=== PATIENT | female | born 1950 | race Asian ===

== ENCOUNTER → 2017-05-08 | Outpatient (CLI) | payer MEDICARE, OTHER | END | disposition home or self-care (01) | LOC: RADPV 07:53 | PROVIDERS: ATTEND Legal Medicine | DX: I70.0 Atherosclerosis of aorta (principal) | CPT/HCPCS: 71020 ==

== ENCOUNTER 2017-12-06 08:02 | Day surgery (SDC) | payer MEDICARE, OTHER ==
[~2017-12-06] VITALS: Ht 160 cm; Wt 58.2 kg
[~2017-12-06 08:02] MED LIST: AMOX500C2 PO; ASPI81 PO; DICLOFENAC SODIUM 0.1% 2.5 ML OPHTHALMIC SOLUTION ONE; MOXIFLOXACIN HCL 0.5% 3 ML OPHTHALMIC SOLUTION ONE; PHENYLEPHRINE HCL 2.5% 2 ML OPHTHALMIC SOLUTION ONE; RINGERS SOLUTION,LACTATED 500 ML IV ONE; SIMV-259 PO; TROPICAMIDE 1% 2 ML OPHTHALMIC SOLUTION ONE
[2017-12-06] MEDS ORDERED: LIDOCAINE HCL/PF 1% 2 ML VIAL IM ONE (08:03)
[2017-12-06] MEDS ORDERED: EPINEPHrine 1:1,000 [1 MG/ML] AMP IM ONE (08:03)
[2017-12-06] MEDS ORDERED: HYALURONATE SODIUM 12 MG/ML 0.8 ML SYRINGE IO ONE (08:03)
[2017-12-06] MEDS ORDERED: MIDAZOLAM HCL 2 MG/2 ML VIAL IVP ONE (08:03)
[2017-12-06] MEDS ORDERED: POVIDONE-IODINE 10% 15 ML SOLUTION UD TP ONE (08:03)
[2017-12-06] MEDS ORDERED: BALANCED SALT 15 ML OPHTHALMIC IRRIG.SOLN OD ONE (08:03)
[2017-12-06] MEDS ORDERED: DEXAMETHASONE SOD PHOS 4 MG/ML VIAL IVP ONE (08:03)
[2017-12-06] MEDS ORDERED: FentaNYL CITRATE-PF 100 MCG/2 ML VIAL IVP ONE (08:03)
[2017-12-06] MEDS ORDERED: TETRACAINE HCL VISCOUS 0.5% 5 ML OPHTHALMIC SOLUTION OD ONE (08:03)
[2017-12-06] MEDS: TROPICAMIDE 1% 2 ML OPHTHALMIC SOLUTION OD SCH ×2 (08:26→08:31)
[2017-12-06] MEDS: PHENYLEPHRINE HCL 2.5% 2 ML OPHTHALMIC SOLUTION OD SCH ×2 (08:26→08:31)
[2017-12-06] MEDS ORDERED: MOXIFLOXACIN HCL 0.5% 3 ML OPHTHALMIC SOLUTION OD ONE (11:00)
[2017-12-06] MEDS ORDERED: DICLOFENAC SODIUM 0.1% 2.5 ML OPHTHALMIC SOLUTION OD ONE (11:00)
[2017-12-06] MEDS ORDERED: RINGERS SOLUTION,LACTATED 500 ML IV ONE (11:00)
== END 2017-12-06 10:00 | disposition home or self-care (01) ==
LOC: SDS 08:02
PROVIDERS: ATTEND Specialist
DX: H25.011 Cortical age-related cataract, right eye (principal); E78.00 Pure hypercholesterolemia, unspecified; Z87.891 Personal history of nicotine dependence; Z79.82 Long term (current) use of aspirin; Z79.899 Other long term (current) drug therapy
CPT/HCPCS: 66984; 93005; C1780; J2250; J3010; J7120; J0171; J1100; J3490

== ENCOUNTER 2020-02-09 09:35 | Emergency (ER) | payer MEDICARE, MEDICAID ==
[~2020-02-09] VITALS: Ht 167.6 cm; Wt 54.5 kg
[~2020-02-09 09:35] MED LIST changes: -AMOX500C2 PO; +ASPI-728 PO; -ASPI81 PO; -DICLOFENAC SODIUM 0.1% 2.5 ML OPHTHALMIC SOLUTION ONE; -MOXIFLOXACIN HCL 0.5% 3 ML OPHTHALMIC SOLUTION ONE; -PHENYLEPHRINE HCL 2.5% 2 ML OPHTHALMIC SOLUTION ONE; -RINGERS SOLUTION,LACTATED 500 ML IV ONE; -TROPICAMIDE 1% 2 ML OPHTHALMIC SOLUTION ONE
[2020-02-09 11:33] LABS: BASOPHILS % (AUTO) 0.7 % (0.0-2.0); EOSINOPHILS % (AUTO) 0.1 % (1.0-6.0); HEMATOCRIT 39.3 % (36-46); HEMOGLOBIN 13.4 g/dL (12.0-16.0); LYMPHOCYTES # (AUTO) 0.5 K/uL (1.0-4.8); LYMPHOCYTES % (AUTO) 6.9 % (22.0-44.0); MEAN CORPUSCULAR HEMOGLOBIN 29.3 pg (26.0-34.0); MEAN CORPUSCULAR HGB CONC 34.2 G/dL (31.0-37.0); MEAN CORPUSCULAR VOLUME 86 fL (80-100); MONOCYTES # (AUTO) 0.7 K/uL (0.1-1.0); NEUTROPHILS # (AUTO) 6.1 K/uL (1.8-7.7); NEUTROPHILS % (AUTO) 83.3 % (40.0-70.0); PLATELET COUNT (AUTO) 230 K/uL (150-450); RED BLOOD CELL COUNT(AUTO) 4.59 MIL/uL (4.00-5.20); RED CELL DISTRIBUTION WIDTH 13.7 % (11.5-14.5)
[2020-02-09 11:52] LABS: ANION GAP 12 mmol/L (8-16); CALCIUM, TOTAL 9.1 mg/dL (8.8-10.5); CARBON DIOXIDE 22 mmol/L (22-29); CHLORIDE 103 mmol/L (98-107); CREATININE 0.63 mg/dL (0.60-1.30); GLOMERULAR FILTR. RATE CALC > 60 mL/min (>60); GLUCOSE,RANDOM 113 mg/dL (70-110); POTASSIUM 3.6 mmol/L (3.5-5.1); SODIUM SERUM 137 mmol/L (136-145); UREA NITROGEN, BLOOD 13 mg/dL (7-18)
[2020-02-09 12:18] LABS: ALANINE AMINOTRANSFERASE 27 U/L (12-78); ALBUMIN 2.4 g/dL (3.4-5.0); ALKALINE PHOSPHATASE 51 U/L (46-116); ASPARTATE AMINOTRANSFERASE 41 U/L (15-37); BILIRUBIN,TOTAL 0.8 mg/dL (0.1-1.0); CREATINE KINASE, TOTAL ONLY 85 U/L (26-192); TOTAL PROTEIN, SERUM 6.8 g/dL (6.4-8.2)
[2020-02-09 12:30] VITALS: BP 123/91
[2020-02-09] MEDS ORDERED: MethylPREDNISolone SOD SUCC 125 MG/2 ML VIAL IVP ONE (12:45)
[2020-02-09] MEDS ORDERED: AZITHROMYCIN 500 MG TABLET PO ONE (12:45)
[2020-02-09 14:00] LABS: INFLUENZA TYPE A NEGATIVE FOR TYPE A (NEGATIVE); INFLUENZA TYPE B NEGATIVE FOR TYPE B (NEGATIVE)
== END 2020-02-09 14:06 | disposition home or self-care (01) ==
LOC: EMS 09:53
DX: U07.1 COVID-19 (principal); J18.9 Pneumonia, unspecified organism
CPT/HCPCS: 71045; 80053; 82550; 84484; 85025; 87635; 87804; 93005; 96374; 99285; J2930; U0003